=== PATIENT | female | born 2000 | race Caucasian/White ===

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

== ENCOUNTER → 2020-10-19 | Outpatient (CLI) | payer BC ==
[2020-10-19 10:38] VITALS: BP 107/74; PULSE 115; RESP 16; TEMP 98
--- NOTE | 2020-10-19 11:30 | P.HPOB ---
History of Present Illness H&P Date: 10/19/20 Chief Complaint: The patient is here for her routine gynecologic exam and for control. This is a 20-year-old G0 with an LMP of 10/13/2020. The patient states she is doing well with oral contraception and her hypermenorrhea and dysmenorrhea are controlled with the oral contraception. She says she is engaged to be and they plan to get in 2021. She is not interested in getting in the near future. She has been with her fianc for about 1-1/2 years. Review of Systems The patient has gained 11 pounds over the last year. She denies respiratory, cardiac, or G.I. problems. 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 She has completed her HPV vaccination series. History of Any Multi-Drug Resistant Organisms: None Reported Past Surgical History: No Surgical Hx Reported Past Psychological History: Anxiety Smoking Status: Never smoker Past Alcohol Use History: None Reported Past Drug Use History: None Reported Additional History: The patient is single and is now engaged to be . They plan to get in 2021. She has been with her fianc since 2018. She continues to go to [facility] [place]. - Past Family History Father Family Medical History: Unable to Obtain Additional Family Medical History / Comment(s): The patient is adopted and has very limited access to her family history. Paternal grandmother had diabetes. Mother Family Medical History: Unable to Obtain Medications and Allergies Home Medications Medication Instructions Recorded Confirmed Type Citalopram Hydrobromide 20 mg PO HS 10/21/19 10/19/20 History [Citalopram HBr] Norgestimate-Ethinyl Estradiol 1 each PO DAILY #84 tablet 10/21/19 10/19/20 Rx [Tri-Sprintec Tablet] Allergies Allergy/AdvReac Type Severity Reaction Status Date / Time bee venom protein (honey bee) Allergy Swelling Unverified 10/19/20 10:32 Exam Vital Signs Temp Pulse Resp BP Pulse Ox 10/19/20 10:34 98.0 F 115 H 16 107/74 98 Intake and Output 10/18/20 10/19/20 10/19/20 22:59 06:59 14:59 Other: Weight 76.657 kg Height 5 feet 4-1/2 inches, weight 169 pounds, BMI 28.6. This is a well-developed well-nourished white female who is alert and oriented times 3 in no acute distress. HEENT: Within normal limits. NECK: Supple without mass or thyromegaly. CHEST AND LUNGS: Clear to auscultation. HEART: Regular rate and rhythm. BREASTS: Are without mass or discharge. AXILLARY EXAM: Negative for adenopathy. BACK: Negative for CVA tenderness. ABDOMEN: Soft, nontender, without palpable masses. PELVIC EXAM: Normal external genitalia. Cervix and vagina appear normal. There is scant old menstrual type blood in the vagina. There is no unusual discharge. There is no evidence of prolapse. The uterus is midposition, nongravid size and nontender. There are no palpable adnexal masses or tenderness. RECTAL EXAM: Deferred. EXTREMITIES: Nontender. IMPRESSION: 1. 20-year-old female with normal gynecologic exam, with improved hypermenorrhea and dysmenorrhea on oral contraception. 2. She has completed her HPV vaccination series. PLAN: 1. Pap smear will be deferred until age 21. 2. Self breast awareness was discussed with the patient. 3. GC and chlamydia testing from the cervix has been obtained for screening. 4. The prescription for Tri-Sprintec will be sent to [facility] in [place] electronically. 5. She was advised to return in one year for her annual well woman exam.
--- NOTE | 2020-10-26 17:13 | P.PN ---
Progress Note - Text Progress Note Date: 10/26/20 OUTPATIENT FOLLOW-UP NOTE TEST(S)/RESULTS: Test results from 10/19/2020 include negative GC and negative chlamydia testing. METHOD OF NOTIFICATION: The patient was notified by phone. PATIENT COMMENTS: DIAGNOSIS: GC and chlamydia screening. DISCUSSION: PLAN: She was advised to return in one year for her annual well woman exam.
== END | disposition home or self-care (01) ==
LOC: WWCWWP 10:13
PROVIDERS: ATTEND Obstetrics & Gynecology
DX: Z53.9 Procedure and treatment not carried out, unspecified reason (principal)

== ENCOUNTER → 2021-10-25 | Outpatient (CLI) | payer BC ==
[2021-10-25 09:28] VITALS: BP 110/76; PULSE 100; RESP 16; TEMP 98.1
--- NOTE | 2021-10-25 10:04 | P.HPOB ---
History of Present Illness H&P Date: 10/25/21 Chief Complaint: The patient is here for her routine gynecologic exam. This is a 21-year-old G0 with an LMP of 10/12/2021. She continues to do well with oral contraception which she started because of hypermenorrhea and dysmenorrhea. Her menstrual periods have been very regular and not as heavy and not as painful. She now is also using it for contraception and plans not getting for another 3 years. She is engaged to be and has set the date on 04/08/2022. Review of Systems The patient has gained 11 pounds over the last year. She denies respiratory, cardiac, or G.I. problems. 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 She has completed her HPV vaccination series. History of Any Multi-Drug Resistant Organisms: None Reported Past Surgical History: No Surgical Hx Reported Past Psychological History: Anxiety Smoking Status: Never smoker Past Alcohol Use History: None Reported Past Drug Use History: None Reported Additional History: She is engaged to be on 04/08/2022 and they've been together since 2019. 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 - Past Family History Father Family Medical History: Unable to Obtain Additional Family Medical History / Comment(s): The patient is adopted and has very limited access to her family history. Paternal grandmother had diabetes. Mother Family Medical History: Unable to Obtain Medications and Allergies Home Medications Medication Instructions Recorded Confirmed Type Citalopram Hydrobromide 20 mg PO HS 10/21/19 10/25/21 History [Citalopram HBr] Norgestimate-Ethinyl Estradiol 1 each PO DAILY #84 tablet 10/19/20 10/25/21 Rx [Tri-Sprintec Tablet] Ascorbic Acid [Vitamin C] 500 mg PO DAILY 10/25/21 10/25/21 History Cholecalciferol [Vitamin D3 (25 25 mcg PO DAILY 10/25/21 10/25/21 History Mcg = 1000 Iu)] Zinc 50 mg PO HS 10/25/21 10/25/21 History Allergies Allergy/AdvReac Type Severity Reaction Status Date / Time bee venom protein (honey bee) Allergy Swelling Unverified 10/25/21 09:23 Exam Vital Signs Temp Pulse Resp BP Pulse Ox 10/25/21 09:25 98.1 F 100 16 110/76 98 Intake and Output 10/24/21 10/25/21 10/25/21 22:59 06:59 14:59 Other: Weight 81.647 kg Height 5 feet 4-1/2 inches, weight 180 pounds, BMI 30.4. This is a well-developed well-nourished white female who is alert and oriented times 3 in no acute distress. HEENT: Within normal limits. NECK: Supple without mass or thyromegaly. CHEST AND LUNGS: Clear to auscultation. HEART: Regular rate and rhythm. BREASTS: Are without mass or discharge. AXILLARY EXAM: Negative for adenopathy. BACK: Negative for CVA tenderness. ABDOMEN: Soft, nontender, without palpable masses. PELVIC EXAM: Normal external genitalia. Cervix and vagina appear normal. There is no unusual discharge. The cervix is slightly friable upon doing the Pap smear. There is no evidence of prolapse. The uterus is midposition, nongravid size and nontender. There are no palpable adnexal masses or tenderness. RECTAL EXAM: Deferred. EXTREMITIES: Nontender. IMPRESSION: 1. 21-year-old female with normal gynecologic exam, who is doing well on oral contraception. 2. Improved hypermenorrhea and dysmenorrhea on oral contraception. PLAN: 1. Pap smear was performed. This will be cytology only. 2. Self breast awareness was discussed with the patient. We have also discussed symptoms associated with inflammatory breast cancer. 3. GC and Chlamydia testing was obtained from the cervix. 4. Continue oral contraception. Tri-Sprintec one daily. The prescription will be sent electronically to [facility] in [place]. 5. Weight control was discussed with the patient. I have stressed the importance of good nutrition, regular meals, adequate fiber, and regular activity. 6. She has received the [employer] Covid vaccination. I have recommended that she look into a booster. 7. Preconception planning was discussed. I have recommended that she start a daily multivitamin with folic acid prior to attempting . 8. She was advised to return in one year for her annual well woman exam.
[2021-10-26 10:56] LABS: Chlamydia trachomatis rRNA Not detected (Not detected); Neisseria gonorrhoeae rRNA Not detected (Not detected)
== END ==
LOC: WWCWWP 09:00
PROVIDERS: ATTEND Obstetrics & Gynecology
DX: Z01.419 Encounter for gynecological examination (general) (routine) without abnormal findings (principal); F41.9 Anxiety disorder, unspecified; Z91.030 Bee allergy status
CPT/HCPCS: 87491; 87591

== ENCOUNTER 2022-11-15 19:20 | Emergency (ER) | payer BC ==
[2022-11-15] MEDS ORDERED: KETOROLAC 15 MG/ML 1 ML VIAL IVP STA (20:39)
[2022-11-15] MEDS ORDERED: ONDANSETRON 4 MG/2 ML VIAL IVP STA (20:39)
[2022-11-15] MEDS ORDERED: SODIUM CHLORIDE 0.9% 1,000 ML IV STA (20:39)
[2022-11-15] MEDS ORDERED: FAMOTIDINE 20 MG/2 ML VIAL IV STA (20:40)
--- NOTE | 2022-11-15 20:46 | ED ---
Abdominal Pain HPI - General Chief Complaint: Nausea/Vomiting/Diarrhea Stated Complaint: stiff neck/flu symtoms Time Seen by Provider: 11/15/22 20:23 Source: patient, family, RN notes reviewed Mode of arrival: ambulatory Limitations: no limitations - History of Present Illness Initial Comments: This is a 22-year-old female who presents to the emergency department for nausea, vomiting, diarrhea, and abdominal pain for the last 3 days. States that she is unable to keep much of anything down and has associated diarrhea. She is now starting to feel like she has a headache and stiff neck with pain going down the back. She is still trying to push fluids despite all of the vomiting. Denies any fevers or sick contacts. States that the abdominal pain is diffuse and she is unable to localize it. Also states that she has been very sleepy and has only been awake for 4 hours today. Denies any fevers, chills, sore throat, cough, dyspnea, chest pain, or palpitations. MD Complaint: abdominal pain Onset/Timin -: days(s) Location: diffuse Associated Symptoms: nausea, vomiting, diarrhea - Related Data Home Medications Medication Instructions Recorded Confirmed Citalopram Hydrobromide 20 mg PO HS 10/21/19 10/25/21 [Citalopram HBr] Ascorbic Acid [Vitamin C] 500 mg PO DAILY 10/25/21 10/25/21 Cholecalciferol [Vitamin D3 (25 25 mcg PO DAILY 10/25/21 10/25/21 Mcg = 1000 Iu)] Zinc 50 mg PO HS 10/25/21 10/25/21 Previous Rx's Medication Instructions Recorded norgestimate-ethinyl estradioL 1 each PO DAILY #84 tablet 10/25/21 [Tri-Sprintec Tablet] Ketorolac [Toradol] 10 mg PO Q6HR PRN #12 tab 11/15/22 Ondansetron Odt [Zofran Odt] 4 mg PO Q8HR PRN #15 tab 11/15/22 Allergies Allergy/AdvReac Type Severity Reaction Status Date / Time bee venom protein (honey bee) Allergy Swelling Verified 11/15/22 21:36 Review of Systems ROS Statement: Those systems with pertinent positive or pertinent negative responses have been documented in the HPI. ROS Other: All systems not noted in ROS Statement are negative. 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 She has completed her HPV vaccination series. History of Any Multi-Drug Resistant Organisms: None Reported Past Surgical History: No Surgical Hx Reported Past Psychological History: Anxiety Smoking Status: Never smoker Past Alcohol Use History: None Reported Past Drug Use History: None Reported - Past Family History Father Family Medical History: Unable to Obtain Additional Family Medical History / Comment(s): The patient is adopted and has wes limited access to her family history. Paternal grandmother had diabetes. Mother Family Medical History: Unable to Obtain General Exam Limitations: no limitations General appearance: alert, in distress Head exam: Present: atraumatic, normocephalic, normal inspection Neck exam: Present: normal inspection, full ROM. Absent: tenderness, meningismus, lymphadenopathy Respiratory exam: Present: normal lung sounds bilaterally. Absent: respiratory distress, wheezes, rales, rhonchi, stridor Cardiovascular Exam: Present: regular rate, normal rhythm, normal heart sounds. Absent: systolic murmur, diastolic murmur, rubs, gallop, clicks GI/Abdominal exam: Present: soft, tenderness (diffuse, worse on the right), hypoactive bowel sounds. Absent: distended Neurological exam: Present: alert, oriented X3, CN II-XII intact Psychiatric exam: Present: normal affect, normal mood Skin exam: Present: warm, dry, intact, normal color. Absent: rash Course Vital Signs 11/15/22 11/15/22 19:32 23:06 Temperature 97.5 F L 98.2 F Pulse Rate 96 82 Respiratory 18 16 Rate Blood Pressure 111/76 115/78 O2 Sat by Pulse 98 98 Oximetry Medical Decision Making - Medical Decision Making This is a 22-year-old female who presents to the emergency department for nausea, vomiting, diarrhea, and abdominal pain. Was pt. sent in by a medical professional or institution? @ -No Did you speak to anyone other than the patient for history? @ -Her mother Did you review nursing and triage notes? @ -Yes, and I agree, it is accurate with regards to the patient's symptoms. Were old charts reviewed? @ -No Differential Diagnosis? @ -Differential Abdominal Pain Women: Appendicitis, Cholecystitis, diverticulosis, ischemic bowel, pancreatitis, hepatitis, UTI, gastroenteritis, AAA, incarcerated hernia, bowel obstruction, constipation, inflammatory bowel, hepatitis, peptic ulcer disease, splenic infarction, perforated viscus, vulvitis, ovarian torsion, PID, kidney stone, placenta abruption, this is not meant to be an all-inclusive list CT interpreted by me (1pt min.)? @ -Computed tomography scan of the abdomen and pelvis obtained. My interpretation identifies no evidence of bowel wall thickening or dilation of the appendix. What testing was considered but not performed? (CT, X-rays, U/S, labs)? Why? @ -None What meds were considered but not given? Why? @ -None Did you discuss the management of the patient with other professionals? @ -No Did you reconcile home meds? @ -No Was smoking cessation discussed for >3mins.? @ -No Was critical care preformed (if so, how long)? @ -No Were there social determinants of health that impacted care today? How? (Homelessness, low income, unemployed, alcoholism, drug addiction, t ransportation, low edu. Level, literacy, decrease access to med. care, custodial, rehab)? @ -No Was there de-escalation of care discussed even if they declined? (Discuss DNR or withdrawal of care, Hospice)? @ -No What co-morbidities impacted this encounter? (DM, HTN, Smoking, COPD, CAD, Cancer, CVA, Hep., AIDS, mental health diagnosis, sleep apnea, morbid obesity)? @ -None Was patient admitted / discharged? @ -Discharged. Lab work obtained and found to be nonactionable. Computed tomography scan of the abdomen and pelvis obtained due to the patient's notable tenderness. This also revealed no acute findings. She was given IV fluids, Toradol, Zofran, and Pepcid with significant relief in symptoms. Patient states that she feels stable for discharge home. Prescription for Zofran and Toradol provided with dosing instructions reviewed. Advised she avoid [id number] anti-inflammatories such as ibuprofen with the Toradol. Instructed her to slowly advance her diet as tolerated and remain well-hydrated. Also advised warm moist compresses for the neck. Undiagnosed new problem with uncertain prognosis? @ -None Drug Therapy requiring intensive monitoring for toxicity (Heparin, Nitro, Insulin, Cardizem)? @ -None Were any procedures done? @ -None Diagnosis/symptom? @ -Gastroenteritis Acute, or Chronic, or Acute on Chronic? @ -Acute Uncomplicated (without systemic symptoms) or Complicated (systemic symptoms)? @ -Complicated Side effects of treatment? @ -None Exacerbation, Progression, or Severe Exacerbation] @ -Not applicable Poses a threat to life or bodily function? @ -Yes, the symptoms have been impacting her ability to function. Return precautions reviewed in depth, the patient is instructed to return to the emergency department with any new, worsening, or concerning symptoms. Patient verbalized understanding. This case was discussed in detail with the attending ED physician, Dr. Odonnell. Presentation, findings, and treatment plan discussed in detail as well. - Lab Data Result diagrams: 11/15/22 21:14 11/15/22 21:14 Lab Results 11/15/22 11/15/22 11/15/22 Range/Units 21:14 21:14 21:14 WBC 5.7 (3.8-10.6) k/uL RBC 5.54 H (3.80-5.40) m/uL Hgb 14.1 (11.4-16.0) gm/dL Hct 42.2 (34.0-46.0) % MCV 76.1 L (80.0-100.0) fL MCH 25.4 (25.0-35.0) pg MCHC 33.4 (31.0-37.0) g/dL RDW 12.9 (11.5-15.5) % Plt Count 343 (150-450) k/uL MPV 7.2 Neutrophils % 58 % Lymphocytes % 28 % Monocytes % 8 % Eosinophils % 2 % Basophils % 1 % Neutrophils # 3.3 (1.3-7.7) k/uL Lymphocytes # 1.6 (1.0-4.8) k/uL Monocytes # 0.5 (0-1.0) k/uL Eosinophils # 0.1 (0-0.7) k/uL Basophils # 0.0 (0-0.2) k/uL Sodium (137-145) mmol/L Potassium (3.5-5.1) mmol/L Chloride (98-107) mmol/L Carbon Dioxide (22-30) mmol/L Anion Gap mmol/L BUN (7-17) mg/dL Creatinine (0.52-1.04) mg/dL Est GFR (CKD-EPI)AfAm (>60 ml/min/1.73 sqM) Est GFR (CKD-EPI)NonAf (>60 ml/min/1.73 sqM) Glucose (74-99) mg/dL Plasma Lactic Acid Dave (0.7-2.0) mmol/L Calcium (8.4-10.2) mg/dL Total Bilirubin (0.2-1.3) mg/dL AST (14-36) U/L ALT (4-34) U/L Alkaline Phosphatase (38-126) U/L Total Protein (6.3-8.2) g/dL Albumin (3.5-5.0) g/dL Amylase (30-110) U/L Lipase (23-300) U/L HCG, Qual Urine Color Yellow Urine Appearance Clear (Clear) Urine pH 6.5 (5.0-8.0) Ur Specific Monroe 1.007 (1.001-1.035) Urine Protein Negative (Negative) Urine Glucose (UA) Negative (Negative) Urine Ketones Negative (Negative) Urine Blood Moderate H (Negative) Urine Nitrite Negative (Negative) Urine Bilirubin Negative (Negative) Urine Urobilinogen <2.0 (<2.0) mg/dL Ur Leukocyte Esterase Negative (Negative) Urine RBC 2 (0-5) /hpf Urine WBC 2 (0-5) /hpf Ur Squamous Epith Cells 1 (0-4) /hpf Urine Bacteria Occasional H (None) /hpf Urine HCG, Qual Not Detected (Not Detectd) Urine Opiates Screen (NotDetected) Ur Oxycodone Screen (NotDetected) Urine Methadone Screen (NotDetected) Ur Propoxyphene Screen (NotDetected) Ur Barbiturates Screen (NotDetected) U Tricyclic Antidepress (NotDetected) Ur Phencyclidine Scrn (NotDetected) Ur Amphetamines Screen (NotDetected) U Methamphetamines Scrn (NotDetected) U Benzodiazepines Scrn (NotDetected) Urine Cocaine Screen (NotDetected) U Marijuana (THC) Screen (NotDetected) Influenza Type A (PCR) (Not Detectd) Influenza Type B (PCR) (Not Detectd) RSV (PCR) (Not Detectd) SARS-CoV-2 (PCR) (Not Detectd) 11/15/22 11/15/2211/15/23 Range/Units 21:14 21:14 21:14 WBC (3.8-10.6) k/uL RBC (3.80-5.40) m/uL Hgb (11.4-16.0) gm/dL Hct (34.0-46.0) % MCV (80.0-100.0) fL MCH (25.0-35.0) pg MCHC (31.0-37.0) g/dL RDW (11.5-15.5) % Plt Count (150-450) k/uL MPV Neutrophils % % Lymphocytes % % Monocytes % % Eosinophils % % Basophils % % Neutrophils # (1.3-7.7) k/uL Lymphocytes # (1.0-4.8) k/uL Monocytes # (0-1.0) k/uL Eosinophils # (0-0.7) k/uL Basophils # (0-0.2) k/uL Sodium 136 L (137-145) mmol/L Potassium 4.0 (3.5-5.1) mmol/L Chloride 98 (98-107) mmol/L Carbon Dioxide 24 (22-30) mmol/L Anion Gap 14 mmol/L BUN 7 (7-17) mg/dL Creatinine 0.67 (0.52-1.04) mg/dL Est GFR (CKD-EPI)AfAm >90 (>60 ml/min/1.73 sqM) Est GFR (CKD-EPI)NonAf >90 (>60 ml/min/1.73 sqM) Glucose 98 (74-99) mg/dL Plasma Lactic Acid Dave 1.5 (0.7-2.0) mmol/L Calcium 9.2 (8.4-10.2) mg/dL Total Bilirubin 0.5 (0.2-1.3) mg/dL AST 35 (14-36) U/L ALT 18 (4-34) U/L Alkaline Phosphatase 84 (38-126) U/L Total Protein 8.0 (6.3-8.2) g/dL Albumin 4.6 (3.5-5.0) g/dL Amylase 70 (30-110) U/L Lipase 149 (23-300) U/L HCG, Qual Not Detected Urine Color Urine Appearance (Clear) Urine pH (5.0-8.0) Ur Specific Monroe (1.001-1.035) Urine Protein (Negative) Urine Glucose (UA) (Negative) Urine Ketones (Negative) Urine Blood (Negative) Urine Nitrite (Negative) Urine Bilirubin (Negative) Urine Urobilinogen (<2.0) mg/dL Ur Leukocyte Esterase (Negative) Urine RBC (0-5) /hpf Urine WBC (0-5) /hpf Ur Squamous Epith Cells (0-4) /hpf Urine Bacteria (None) /hpf Urine HCG, Qual (Not Detectd) Urine Opiates Screen Not Detected (NotDetected) Ur Oxycodone Screen Not Detected (NotDetected) Urine Methadone Screen Not Detected (NotDetected) Ur Propoxyphene Screen Not Detected (NotDetected) Ur Barbiturates Screen Not Detected (NotDetected) U Tricyclic Antidepress Not Detected (NotDetected) Ur Phencyclidine Scrn Not Detected (NotDetected) Ur Amphetamines Screen Not Detected (NotDetected) U Methamphetamines Scrn Not Detected (NotDetected) U Benzodiazepines Scrn Not Detected (NotDetected) Urine Cocaine Screen Not Detected (NotDetected) U Marijuana (THC) Screen Not Detected (NotDetected) Influenza Type A (PCR) (Not Detectd) Influenza Type B (PCR) (Not Detectd) RSV (PCR) (Not Detectd) SARS-CoV-2 (PCR) (Not Detectd) 11/15/22 Range/Units 21:14 WBC (3.8-10.6) k/uL RBC (3.80-5.40) m/uL Hgb (11.4-16.0) gm/dL Hct (34.0-46.0) % MCV (80.0-100.0) fL MCH (25.0-35.0) pg MCHC (31.0-37.0) g/dL RDW (11.5-15.5) % Plt Count (150-450) k/uL MPV Neutrophils % % Lymphocytes % % Monocytes % % Eosinophils % % Basophils % % Neutrophils # (1.3-7.7) k/uL Lymphocytes # (1.0-4.8) k/uL Monocytes # (0-1.0) k/uL Eosinophils # (0-0.7) k/uL Basophils # (0-0.2) k/uL Sodium (137-145) mmol/L Potassium (3.5-5.1) mmol/L Chloride (98-107) mmol/L Carbon Dioxide (22-30) mmol/L Anion Gap mmol/L BUN (7-17) mg/dL Creatinine (0.52-1.04) mg/dL Est GFR (CKD-EPI)AfAm (>60 ml/min/1.73 sqM) Est GFR (CKD-EPI)NonAf (>60 ml/min/1.73 sqM) Glucose (74-99) mg/dL Plasma Lactic Acid Dave (0.7-2.0) mmol/L Calcium (8.4-10.2) mg/dL Total Bilirubin (0.2-1.3) mg/dL AST (14-36) U/L ALT (4-34) U/L Alkaline Phosphatase (38-126) U/L Total Protein (6.3-8.2) g/dL Albumin (3.5-5.0) g/dL Amylase (30-110) U/L Lipase (23-300) U/L HCG, Qual Urine Color Urine Appearance (Clear) Urine pH (5.0-8.0) Ur Specific Monroe (1.001-1.035) Urine Protein (Negative) Urine Glucose (UA) (Negative) Urine Ketones (Negative) Urine Blood (Negative) Urine Nitrite (Negative) Urine Bilirubin (Negative) Urine Urobilinogen (<2.0) mg/dL Ur Leukocyte Esterase (Negative) Urine RBC (0-5) /hpf Urine WBC (0-5) /hpf Ur Squamous Epith Cells (0-4) /hpf Urine Bacteria (None) /hpf Urine HCG, Qual (Not Detectd) Urine Opiates Screen (NotDetected) Ur Oxycodone Screen (NotDetected) Urine Methadone Screen (NotDetected) Ur Propoxyphene Screen (NotDetected) Ur Barbiturates Screen (NotDetected) U Tricyclic Antidepress (NotDetected) Ur Phencyclidine Scrn (NotDetected) Ur Amphetamines Screen (NotDetected) U Methamphetamines Scrn (NotDetected) U Benzodiazepines Scrn (NotDetected) Urine Cocaine Screen (NotDetected) U Marijuana (THC) Screen (NotDetected) Influenza Type A (PCR) Not Detected (Not Detectd) Influenza Type B (PCR) Not Detected (Not Detectd) RSV (PCR) Not Detected (Not Detectd) SARS-CoV-2 (PCR) Not Detected (Not Detectd) - Radiology Data Radiology results: report reviewed, image reviewed Disposition Clinical Impression: Gastroenteritis Disposition: HOME SELF-CARE Instructions (If sedation given, give patient instructions): Gastroenteritis (ED), Acute Nausea and Vomiting (ED), Acute Diarrhea (ED) Additional Instructions: Return to the emergency department with any new, worsening, or concerning symptoms. You can take the Toradol with the Tylenol as needed for any additional pain. If you choose to take the Toradol, do not take it with ibuprofen or any other anti-inflammatories. Apply warm moist heat to the neck to help with pain and stiffness. You can take the Zofran up to every 8 hours as needed for nausea and vomiting. Slowly advance your diet as tolerated. Follow up with your primary care provider in 1-2 days. Prescriptions: Ketorolac [Toradol] 10 mg PO Q6HR PRN #12 tab PRN Reason: Pain Ondansetron Odt [Zofran Odt] 4 mg PO Q8HR PRN #15 tab PRN Reason: Nausea And Vomiting Is patient prescribed a controlled substance at d/c from ED?: No Referrals: Arnol Rush MD [Primary Care Provider] - 1-2 days
[2022-11-15 21:33] LABS: Basophils % (A) 1 %; Eosinophils # (A) 0.1 k/uL (0-0.7); Eosinophils % (A) 2 %; HCT 42.2 % (34.0-46.0); HGB 14.1 gm/dL (11.4-16.0); Lymphocytes # (A) 1.6 k/uL (1.0-4.8); Lymphocytes % (A) 28 %; MCH 25.4 pg (25.0-35.0); MCHC 33.4 g/dL (31.0-37.0); MCV 76.1 fL (80.0-100.0); Mean Platelet Volume 7.2; Monocytes # (A) 0.5 k/uL (0-1.0); Monocytes % (A) 8 %; Neutrophils # (A) 3.3 k/uL (1.3-7.7); Neutrophils % (A) 58 %; Platelet Count 343 k/uL (150-450); RBC 5.54 m/uL (3.80-5.40); RDW 12.9 % (11.5-15.5); WBC 5.7 k/uL (3.8-10.6)
[2022-11-15 21:46] LABS: ALT 18 U/L (4-34); AST 35 U/L (14-36); African American GFR (CKD) >90 (>60 ml/min/1.73 sqM); Albumin 4.6 g/dL (3.5-5.0); Alkaline Phosphatase 84 U/L (38-126); Amylase 70 U/L (30-110); Anion Gap 14 mmol/L; Blood Urea Nitrogen 7 mg/dL (7-17); Calcium 9.2 mg/dL (8.4-10.2); Carbon Dioxide 24 mmol/L (22-30); Chloride 98 mmol/L (98-107); Glucose 98 mg/dL (74-99); Lipase 149 U/L (23-300); Non-African American GFR(CKD) >90 (>60 ml/min/1.73 sqM); Sodium 136 mmol/L (137-145); Total Bilirubin 0.5 mg/dL (0.2-1.3)
[2022-11-15 21:54] LABS: Appearance,Urine Clear (Clear); Bacteria,Urine Occasional /hpf; Bilirubin,Urine Negative (Negative); Blood,Urine Moderate (Negative); Color,Urine Yellow; Glucose,Urine (UA) Negative (Negative); Ketones,Urine Negative (Negative); Leukocyte Esterase,Urine Negative (Negative); Nitrite,Urine Negative (Negative); PH, Urine 6.5 (5.0-8.0); Protein,Urine Negative (Negative); RBC,Urine 2 /hpf (0-5); Specific Gravity,Urine 1.007 (1.001-1.035); Squamous Epithelial Cell,Urine 1 /hpf (0-4); Urobilinogen,Urine <2.0 mg/dL (<2.0); WBC,Urine 2 /hpf (0-5)
[2022-11-15 21:59] LABS: HCG,Qualitative Serum Not Detected
[2022-11-15 22:08] LABS: Amphetamine Screen,Urine Not Detected (NotDetected); Barbiturate Screen,Urine Not Detected (NotDetected); Benzodiazepines Screen,Urine Not Detected (NotDetected); Cocaine Screen,Urine Not Detected (NotDetected); Methadone Screen, Urine Not Detected (NotDetected); Opiate Screen,Urine Not Detected (NotDetected); Oxycodone Screen, Urine Not Detected (NotDetected); Phencyclidine Screen,Urine Not Detected (NotDetected); Tricyclic Antidepressant,Urine Not Detected (NotDetected); Urn Cannabinoid Scrn Not Detected (NotDetected)
--- NOTE | 2022-11-15 22:38 | CT ---
EXAMINATION TYPE: CT abdomen pelvis w con DATE OF EXAM: 11/15/2022 COMPARISON: None HISTORY: Abd pain. Vomitting, diarrhea. Neck pain radiating down her back. CT DLP: 1210.4 mGycm Automated exposure control for dose reduction was used. CONTRAST: Performed with IV Contrast, patient injected with 100cc mL of Isovue 300. Images obtained from the diaphragm to the floor the pelvis with the IV contrast. The lung bases are clear. No pleural effusion. Heart size is normal. No pericardial effusion. There is diffuse fatty infiltration of the liver. Spleen is intact. Stomach is intact. There is no pa ncreatic mass. The gallbladder is intact. The bile ducts are not dilated. There is no adrenal mass. Kidneys show satisfactory contrast opacification. No hydronephrosis. Append ix is posterior and appears normal. Urinary bladder is empty. No pelvic mass. No free fluid in the pe lvis. No inguinal hernia. The lumbar vertebrae have normal alignment. Posterior elements are intact. No compression fracture. T he bony pelvis is intact. The hip joints are intact. There is no mesenteric edema. No ascites or free air. No sign of bowel obstruction. IMPRESSION: There is fatty infiltration of the liver. Normal appendix. No acute abnormality in the abdomen and pe lvis.
[2022-11-15] MEDS ORDERED: ONDANSETRON 4 MG ODT STARTER PACK 2 TAB BTL PO STA (22:50)
[2022-11-15 23:07] VITALS: BP 115/78; PULSE 82; RESP 16; TEMP 98.2
== END 2022-11-15 23:06 | disposition home or self-care (01) ==
LOC: EC 19:20
DX: K52.9 Noninfective gastroenteritis and colitis, unspecified (principal); F41.9 Anxiety disorder, unspecified; Z91.030 Bee allergy status; Z20.822 Contact with and (suspected) exposure to COVID-19
CPT/HCPCS: 36415; 80053; 82150; 83605; 83690; 85025; 81001; 81025; 84703; 80306; 87636; 74177; 99284; 96374; 96375 ×2; 96361; J2405; J1885; S0119; Q9967

== ENCOUNTER 2025-04-07 13:15 | Inpatient (IN) | payer BC ==
[2025-04-07] MEDS: DINOPROSTONE 10 MG INSERT.ER VAGINAL ONE (16:51)
--- NOTE | 2025-04-07 17:01 | P.HPOB ---
History of Present Illness H&P Date: 04/07/25 Chief Complaint: IUP at 38-4/7 weeks, umbilical cord varix 24-year-old 1 para 0 at 30-4/7 weeks at presents to labor and delivery for induction of labor secondary to umbilical cord varix. Estimated due date of 04/17 based on good dating parameters. Patient has been receiving routine care. Umbilical cord varix was diagnosed on ultrasound at her previous visit, risk for stillbirth were discussed and patient desired induction of labor. Patient has had extreme anxiety since this conversation and has been noting some decreased movement. Patient denies contractions. Patient denies loss of fluid or vaginal bleeding. On blood work this patient is a blood type O-, rubella status nonimmune, hepatitis B surface engine negative, HIV negative, RPR nonreactive, grew beta strep culture negative. 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 She has completed her HPV vaccination series. History of Any Multi-Drug Resistant Organisms: None Reported Past Surgical History: No Surgical Hx Reported Past Anesthesia/Blood Transfusion Reactions: No Reported Reaction Past Psychological History: Anxiety Smoking Status: Never smoker Past Alcohol Use History: None Reported Past Drug Use History: None Reported - Past Family History Father Family Medical History: Unable to Obtain Additional Family Medical History / Comment(s): The patient is adopted and has very limited access to her family history. Paternal grandmother had diabetes. Mother Family Medical History: Unable to Obtain Medications and Allergies Home Medications Medication Instructions Recorded Confirmed Type Vit No.179/Iron/Folic 1 tab PO DAILY 04/07/25 04/07/25 History [ Tablet] Allergies Allergy/AdvReac Type Severity Reaction Status Date / Time bee venom protein (honey bee) Allergy Swelling Verified 04/07/25 16:21 Exam Osteopathic Statement: *. No significant issues noted on an osteopathic structural exam other than those noted in the History and Physical/Consult. Vital Signs Temp Resp BP Pulse Ox 04/07/25 16:21 96.8 F L 16 119/72 99 Intake and Output 04/07/25 04/07/25 04/07/25 06:59 14:59 22:59 Other: Weight 97.976 kg Targeted physical exam is performed this date in general is well-nourished well- developed female in no acute distress, breathing is nonlabored, abdomen is noted to be gravid, on cervical exam she is 1/50/-3 station vertex presentation, Cervidil is placed without difficulty. heart tones are noted to be category 1 and she is not tawana. Assessment and Plan (1) Term Narrative/Plan: Suspected LGA, 89th percentile on last ultrasound Current Visit: Yes Status: Acute Code(s): Z34.90 - ENCNTR FOR SUPRVSN OF NORMAL , UNSP, UNSP TRIMESTER SNOMED Code(s): 69357915 (2) Varices of umbilical cord Current Visit: Yes Status: Acute Code(s): MDX7528 - SNOMED Code(s): 366052110 Plan: 24-year-old at 38-4/7 weeks presents for medical induction of labor secondary to umbilical cord varix, suspected LGA. Patient has had extreme anxiety since diagnosis of umbilical cord varix and has been struggling with some decreased movement. Patient is admitted and Cervidil is placed out difficulty. Options for analgesia are discussed including Nubain, nitrous, epidural. Patient does desire epidural when appropriate.
[2025-04-07 17:31] LABS: Basophils # (A) 0.03 10*3/uL (0.00-0.10); Basophils % (A) 0.3 %; Eosinophils # (A) 0.06 10*3/uL (0.04-0.35); Eosinophils % (A) 0.5 %; HCT 36.4 % (37.2-46.3); HGB 11.7 g/dL (12.0-15.0); Lymphocytes % (A) 20.3 %; MCH 25.8 pg (27.0-32.0); MCHC 32.1 g/dL (32.0-37.0); MCV 80.4 fL (80.0-97.0); Mean Platelet Volume 10.8 fL (9.5-12.2); Monocytes # (A) 0.89 10*3/uL (0.20-1.00); Monocytes % (A) 7.9 %; Neutrophils # (A) 7.96 10*3/uL (1.80-7.70); Neutrophils % (A) 70.3 %; Platelet Count 279 10*3/uL (140-440); RBC 4.53 10*6/uL (4.10-5.20); RDW 14.6 % (11.5-14.5); WBC 11.32 10*3/uL (4.50-10.00)
[2025-04-08] MEDS: NALBUPHINE 10 MG/ML (10 ML MDV) IV PRN (03:33)
[2025-04-08] MEDS ORDERED: CARBOPROST TROMETHAMINE 250 MCG/ML 1 ML AMP IM PRN (05:24)
[2025-04-08] MEDS ORDERED: TERBUTALINE 1 MG/ML VIAL SQ PRN (05:24)
[2025-04-08] MEDS ORDERED: METHYLERGONOVINE 0.2 MG/ML 1 ML AMP IM PRN ×2 (05:24→19:05)
[2025-04-08] MEDS ORDERED: TRANEXAMIC 1,000 MG/100ML-NACL 1,000 MG in EMPTY BAG 1 BAG IV PRN (05:24)
[2025-04-08] MEDS ORDERED: miSOPROStoL 200 MCG TAB RECTAL PRN (05:24)
[2025-04-08] MEDS ORDERED: miSOPROStoL 200 MCG TAB PO PRN (05:24)
[2025-04-08] MEDS ORDERED: LIDOCAINE 0.5% (PF) 5 MG/ML (50 ML SDV) SQ PRN (05:24)
[2025-04-08] MEDS ORDERED: OXYTOCIN 10 UNIT/ML 1 ML VIAL IM PRN (05:24)
[2025-04-08] MEDS: LACTATED RINGERS 1,000 ML IV SCH ×2 (05:53→22:42)
[2025-04-08] MEDS: OXYTOCIN 30 UNITS/500 ML NS 30 UNIT in SALINE 1 500ML.BAG IV SCH (06:55)
[2025-04-08] MEDS ORDERED: fentaNYL (PF) 50 MCG/ML 5 ML AMP ONE (11:05)
[2025-04-08] MEDS ORDERED: SODIUM CHLORIDE 0.9% 250 ML BAG ONE (11:05)
[2025-04-08] MEDS ORDERED: ROPIVACAINE 5 MG/ML 30 ML VIAL ONE (11:05)
[2025-04-08] MEDS: CITRIC ACID-SODIUM CITRATE 15 ML CUP PO ONE (19:18)
[2025-04-08] MEDS ORDERED: ONDANSETRON 4 MG/2 ML VIAL ONE (19:29)
[2025-04-08] MEDS ORDERED: OXYTOCIN 30 UNITS/500 ML NS BAG IV ONE (19:29)
[2025-04-08] MEDS ORDERED: NALBUPHINE (ANES) 10 MG/ML - 1 ML AMP ONE (19:29)
[2025-04-08] MEDS ORDERED: MORPHINE SULFATE (PF) 0.3 MG/0.3 ML SYR ONE (19:29)
--- NOTE | 2025-04-08 20:07 | P.OP ---
Date of Procedure: 04/08/25 Preoperative Diagnosis: P at 38 and 5, umbilical cord varix, suspected LGA Postoperative Diagnosis: same Procedure(s) Performed: Primary low-transverse section Anesthesia: epidural Configuration Developer #1: Niki Pichardo Configuration Developer #2: Griselda Chávez Estimated Blood Loss (ml): 1,052 IV fluids (ml): 600 Urine output (ml): 300 (Clear yellow) Pathology: none sent Condition: stable Disposition: observation Indications for Procedure: Arrest of dilation, vent, no cervical change for multiple hours, greater than 6, lack of cervical dilation was discussed with patient and patient's family. After multiple questions were answered patient centered agreement of proceeding with primary low-transverse section. Operative Findings: Viable male delivered at 1940, weight of 8 pounds 15 ounces, Apgars of 9 and 9 at 1 and 5 minutes respectively. Description of Procedure: The patient was prepped and draped in the usual fashion after epidural an esthesia was found to be adequate by the anesthesia department.. A Pfannenstiel incision was made and extended of the abdominal cavity without difficulty. The bladder peritoneum was elevated and incised and reflected distally. A 2 cm incision was made in the transverse plane of the lower uterine segment to enter the uterus at which time clear fluid was noted. The incision was extended in both directions using the bandage scissors. The head was encountered within the field and delivered up and through the incision where the nose and mouth were thoroughly suctioned. Remainder of the was delivered onto the surgical field where the cord was doubly clamped, cut, and the infant was passed for resuscitative measures with weight and Apgars as noted above. The placenta was delivered manually, intact, and was grossly normal with a grossly normal three-vessel cord. The uterus was exteriorized and the interior cavity of the uterus swept of any remaining placental and membranous fragments with a laparotomy sponge. The margins of the incision were grasped with Layne clamps and the incision closed in 2 layers. First layer was a running locking layer of 0 chromic catgut from margin to margin followed by a second layer of imbricating 0 chromic catgut from margin to margin. Any small points of bleeding were then made hemostatic with the Bovie. Once hemostasis was a chieved, the posterior cul-de-sac was suctioned with a guard and the uterine and ovarian findings are as noted above. The uterus was replaced within the abdominal cavity and the gutters swept of any remaining blood fluid or clot. The incision was again reexamined and hemostasis was noted to be excellent. Any small point of bleeding were made hemostatic with the Bovie. Once hemostasis was achieved the parietal peritoneum was loosely reapproximated. The layer of muscles were examined and made hemostatic with the Bovie. Attention was then turned to the fascia which was closed with 2 running stitches of 0 Vicryl from 1 lateral edge to the other. The subcutaneous tissues were irrigated, made hemostatic with the Bovie, and reapproximated with a running stitch of 30 Vicryl. The skin was reapproximated with 4-0 Vicryl. Estimated blood loss for the case was approximately 1052 mL. All sponge instrument and needle counts are correct. There were no complications. The patient tolerated the procedure well and proceeded to the recovery room in stable condition. Both mother and infant are resting comfortably in recovery.
[2025-04-08] MEDS ORDERED: ZOLPIDEM 5 MG TAB PO PRN (20:15)
[2025-04-08] MEDS ORDERED: METOCLOPRAMIDE 5 MG/ML 2 ML VIAL IVP PRN (20:15)
[2025-04-08] MEDS ORDERED: diphenhydrAMINE 25 MG CAP PO PRN (20:15)
[2025-04-08] MEDS ORDERED: NALOXONE 0.4 MG/ML 1 ML VIAL IV PRN (20:15)
[2025-04-08] MEDS ORDERED: SIMETHICONE 80 MG CHEWABLE PO PRN (20:15)
[2025-04-08] MEDS ORDERED: diphenhydrAMINE 50 MG/ML 1 ML VIAL IVP PRN ×2 (20:15)
[2025-04-08] MEDS ORDERED: ONDANSETRON 4 MG/2 ML VIAL IVP PRN (20:15)
[2025-04-08] MEDS ORDERED: diphenhydrAMINE 50 MG CAP PO PRN (20:15)
[2025-04-08] MEDS: ACETAMINOPHEN IV (For NPO) 1,000 MG in EMPTY BAG 1 BAG IVPB ONE (20:48)
[2025-04-08] MEDS: SENNOSIDES-DOCUSATE SODIUM 1 EACH TAB PO SCH (21:18)
[2025-04-08] MEDS: MORPHINE SULFATE 2 MG/ML SYRINGE IVP PRN (22:41)
[2025-04-09] MEDS: IBUPROFEN 800 MG TAB PO SCH (03:28)
[2025-04-09] MEDS: IBUPROFEN IV 800 MG in SODIUM CHLORIDE 0.9% 250 ML IV ONE (03:48)
[2025-04-09] MEDS: Rhogam IMMUNE GLOBULIN 1,500 UNIT/1 ML IM ONE (04:57)
[2025-04-09] MEDS: ACETAMINOPHEN TAB 500 MG TAB PO SCH (05:09)
[2025-04-09 07:18] LABS: Basophils # (A) 0.03 10*3/uL (0.00-0.10); Basophils % (A) 0.2 %; Eosinophils # (A) 0.03 10*3/uL (0.04-0.35); Eosinophils % (A) 0.2 %; HCT 29.6 % (37.2-46.3); Lymphocytes # (A) 1.78 10*3/uL (0.90-5.00); Lymphocytes % (A) 12.5 %; MCH 26.1 pg (27.0-32.0); MCHC 32.4 g/dL (32.0-37.0); MCV 80.4 fL (80.0-97.0); Mean Platelet Volume 10.3 fL (9.5-12.2); Monocytes % (A) 9.8 %; Neutrophils # (A) 10.89 10*3/uL (1.80-7.70); Neutrophils % (A) 76.7 %; Platelet Count 210 10*3/uL (140-440); RBC 3.68 10*6/uL (4.10-5.20); RDW 14.8 % (11.5-14.5); WBC 14.22 10*3/uL (4.50-10.00)
[2025-04-09 07:19] LABS: HGB 9.6 g/dL (12.0-15.0)
--- NOTE | 2025-04-09 07:53 | P.PN ---
Progress Note - Text Progress Note Date: 04/09/25 (576) Anesthesia Postop day 1 Subjective: Status Post section with Duramorph. Patient seen and examined. Doing well without complaint. VAS 8 out of 10. No nausea or pruritus. Denies fever. Gross lower extremity strength intact. Without apparent anesthetic complications. Objective: Vital signs reviewed Heart: Regular Rate Lungs: Good chest excursion Abdomen: Appears nondistended Assessment: Status post section with Duramorph postop day 1 Plan: 1. Continue current care with your medical management. Anticipated end to the duration of the Duramorph around surgery time today. You may see increased pain needs around this time. Breakthrough meds available 2. This note was dictated using [employer] software. Please be advised there is a potential for misspellings or errors in aviation technician aircraft.
--- NOTE | 2025-04-09 09:23 | P.PNOBGPC ---
Subjective - Subjective Principal diagnosis: Postop day 1, primary section Interval history: Doing well this morning. She is ambulating without difficulty. Hope discontinued at 6 AM awaiting spontaneous void. Lochia is minimal to moderate. She is breast-feeding without difficulty. She states her pain is moderately well-controlled. Patient reports: Reports appetite normal, Reports voiding normally, Reports pain well controlled, Reports ambulating normally Lynn: doing well, nursing well Objective - Vital Signs Latest vital signs: Vital Signs Temp Pulse Resp BP Pulse Ox 04/09/25 08:00 98.1 F 92 16 105/70 04/09/25 04:00 97.9 F 95 16 110/74 98 04/09/25 00:00 98.0 F 84 16 105/64 96 04/08/25 22:10 88 16 113/59 97 04/08/25 21:55 79 16 111/57 97 04/08/25 21:40 75 16 112/56 98 04/08/25 21:25 86 16 119/58 98 04/08/25 20:55 81 16 108/58 96 04/08/25 20:40 93 15 115/56 99 04/08/25 20:25 90 16 118/59 99 04/08/25 20:10 97.8 F 95 16 104/57 97 Intake and Output 04/08/25 04/09/25 04/09/25 22:59 06:59 14:59 Intake Total 200 Output Total 843 1300 Balance -843 -1100 Intake: Oral 200 Output: Urine 700 1300 Uretheral (Hope) 700 1300 Output, Quantitative 143 Blood Loss Other: Voiding Method Indwelling Catheter - Exam Extremities: Present: normal, edema Abdomen: Present: normal appearance, soft Incision: Present: normal, dry, intact Uterus: Present: normal, firm - Labs Labs: Abnormal Lab Results - Last 24 Hours (Table) 04/09/25 Range/Units 06:44 WBC 14.22 H (4.50-10.00) 10*3/uL RBC 3.68 L (4.10-5.20) 10*6/uL Hgb 9.6 L D (12.0-15.0) g/dL Hct 29.6 L (37.2-46.3) % MCH 26.1 L (27.0-32.0) pg Immature Gran # 0.09 H (0.00-0.04) 10*3/uL Neutrophils # 10.89 H (1.80-7.70) 10*3/uL Monocytes # 1.40 H (0.20-1.00) 10*3/uL Eosinophils # 0.03 L (0.04-0.35) 10*3/uL Assessment and Plan (1) Term Current Visit: Yes Status: Acute Code(s): Z34.90 - ENCNTR FOR SUPRVSN OF NORMAL , UNSP, UNSP TRIMESTER SNOMED Code(s): 62759891 (2) Varices of umbilical cord Current Visit: Yes Status: Acute Code(s): WRX4423 - SNOMED Code(s): 664298053 (3) Arrest of dilation, delivered, current hospitalization Current Visit: Yes Status: Acute Code(s): O62.1 - SECONDARY UTERINE INERTIA SNOMED Code(s): 61879878 (4) Arrest of descent, delivered, current hospitalization Current Visit: Yes Status: Acute Code(s): O62.1 - SECONDARY UTERINE INERTIA SNOMED Code(s): 36782045 (5) malpresentation Current Visit: Yes Status: Acute Code(s): O32.9XX0 - MATERNAL CARE FOR MALPRESENTATION OF FETUS, UNSP, UNSP SNOMED Code(s): 88877098 (6) S/P section Current Visit: Yes Status: Acute Code(s): Z98.891 - HISTORY OF UTERINE SCAR FROM PREVIOUS SURGERY SNOMED Code(s): 408789101 Plan: Patient is doing well postoperatively, awaiting spontaneous void. Plan to continue routine postoperative care
[2025-04-09] MEDS: HYDROmorphone 1 MG/ML 1 ML SYRINGE IVP PRN (13:51)
[2025-04-09 14:34] LABS: Basophils # (A) 0.04 10*3/uL (0.00-0.10); Basophils % (A) 0.3 %; Eosinophils # (A) 0.04 10*3/uL (0.04-0.35); Eosinophils % (A) 0.3 %; HCT 30.1 % (37.2-46.3); HGB 9.8 g/dL (12.0-15.0); Lymphocytes # (A) 1.83 10*3/uL (0.90-5.00); Lymphocytes % (A) 12.2 %; MCH 26.5 pg (27.0-32.0); MCHC 32.6 g/dL (32.0-37.0); MCV 81.4 fL (80.0-97.0); Mean Platelet Volume 10.4 fL (9.5-12.2); Monocytes # (A) 1.38 10*3/uL (0.20-1.00); Monocytes % (A) 9.2 %; Neutrophils # (A) 11.66 10*3/uL (1.80-7.70); Neutrophils % (A) 77.5 %; Platelet Count 212 10*3/uL (140-440); RDW 14.7 % (11.5-14.5); WBC 15.03 10*3/uL (4.50-10.00)
[2025-04-10] MEDS: PRENATAL VIT-IRON-FOLIC ACID 1 EACH TABLET PO SCH (01:25)
--- NOTE | 2025-04-10 08:22 | P.PNOBGPC ---
Subjective - Subjective Principal diagnosis: New, primary Interval history: Patient is doing well this morning. She is ambulating and voiding without difficulty. Still struggling somewhat with pain control. She is breast-feeding without difficulty. Lochia is noted to be moderate. Patient reports: Reports appetite normal, Reports voiding normally, Reports pain well controlled, Reports ambulating normally : doing well, nursing well Objective - Vital Signs Latest vital signs: Vital Signs Temp Pulse Resp BP Pulse Ox 04/10/25 00:00 98.4 F 108 H 18 112/64 04/09/25 16:00 97.7 F 85 16 111/71 97 Intake and Output 04/09/25 04/10/25 04/10/25 22:59 06:59 14:59 Other: # Voids 1 1 - Exam Extremities: Present: normal, edema Abdomen: Present: normal appearance, soft Incision: Present: normal, dry, intact Uterus: Present: normal, firm - Labs Labs: Abnormal Lab Results - Last 24 Hours (Table) 04/09/25 Range/Units 14:08 WBC 15.03 H (4.50-10.00) 10*3/uL RBC 3.70 L (4.10-5.20) 10*6/uL Hgb 9.8 L (12.0-15.0) g/dL Hct 30.1 L (37.2-46.3) % MCH 26.5 L (27.0-32.0) pg Immature Gran # 0.08 H (0.00-0.04) 10*3/uL Neutrophils # 11.66 H (1.80-7.70) 10*3/uL Monocytes # 1.38 H (0.20-1.00) 10*3/uL Assessment and Plan (1) Term Current Visit: Yes Status: Acute Code(s): Z34.90 - ENCNTR FOR SUPRVSN OF NORMAL , UNSP, UNSP TRIMESTER SNOMED Code(s): 72091759 (2) Varices of umbilical cord Current Visit: Yes Status: Acute Code(s): KRA2484 - SNOMED Code(s): 585847824 (3) Arrest of dilation, delivered, current hospitalization Current Visit: Yes Status: Acute Code(s): O62.1 - SECONDARY UTERINE INERTIA SNOMED Code(s): 80532152 (4) Arrest of descent, delivered, current hospitalization Current Visit: Yes Status: Acute Code(s): O62.1 - SECONDARY UTERINE INERTIA SNOMED Code(s): 54910432 (5) malpresentation Current Visit: Yes Status: Acute Code(s): O32.9XX0 - MATERNAL CARE FOR MALPRESENTATION OF FETUS, UNSP, UNSP SNOMED Code(s): 82973283 (6) S/P section Current Visit: Yes Status: Acute Code(s): Z98.891 - HISTORY OF UTERINE SCAR FROM PREVIOUS SURGERY SNOMED Code(s): 901863909 Plan: Doing well postoperatively, plan to continue routine postoperative care, anticipate discharge home tomorrow
[2025-04-11 08:14] VITALS: BP 110/79; PULSE 92; RESP 16; TEMP 97.9
--- NOTE | 2025-04-11 09:37 | P.DS ---
Providers Date of admission: 04/07/25 15:59 Expected date of discharge: 04/11/25 Attending physician: Niki Pichardo Primary care physician: Stated None - Discharge Diagnosis(es) (1) Term Current Visit: Yes Status: Acute (2) Varices of umbilical cord Current Visit: Yes Status: Acute (3) Arrest of dilation, delivered, current hospitalization Current Visit: Yes Status: Acute (4) Arrest of descent, delivered, current hospitalization Current Visit: Yes Status: Acute (5) malpresentation Current Visit: Yes Status: Acute (6) S/P section Current Visit: Yes Status: Acute Hospital Course: This is a 24-year-old 1 now para 1-0-0-1 that presented to labor and delivery at 38-5/7 weeks for induction of labor secondary to umbilical cord varix. Patient had been dealing with severe anxiety since diagnosis was revealed a few weeks ago. Patient had significant concerns about demise. Patient was noting decreased movement. Patient in addition had an ultrasound revealing suspected LGA. Given patient's mental health and umbilical cord varix patient was admitted for medical induction of labor. Patient was admitted and Cervidil was placed, patient did become uncomfortable through the night receiving Nubain. In the morning Pitocin augmentation of labor was begun and amniotomy was performed. Layer and clear fluid was obtained. Patient made slow progress through the day but did receive an epidural for analgesia. Patient arrested in labor and after many hours patient was counseled on lack of progress lack of descent and possibility for primary . Patient and did discuss and multiple questions were answered. Together we made a decision to proceed with primary low-transverse section. Patient was taken back to the operating room where primary section was performed without difficulty. Patient delivered a viable male infant at 1940 on 04/08, viable male weight of 8 pounds 15 ounces. Infant was noted to be in the left occiput transverse presentation bruising was noted on the forehead consistent with male presentation. For full details on the surgery please see the dictated operative cord. Patient's postoperative course was complicated by poor pain control. On this postoperative day #3 patient states she is feeling well. She is taking Oxy along with ibuprofen and Tylenol for pain control. She is requesting prescription for home use. Her lochia is noted to be minimal to moderate. She is ambulating and voiding without difficulty. She is tolerating a regular diet without nausea or vomiting. She states she is feeling well and would like discharge home. Patient Condition at Discharge: Good Plan - Discharge Summary New Discharge Prescriptions: No Action Vit No.179/Iron/Folic [ Tablet] 1 tab PO DAILY Discharge Medication List Vit No.179/Iron/Folic [ Tablet] 1 tab PO DAILY 04/07/25 [History] Follow up Appointment(s)/Referral(s): Niki Pichardo DO [Doctor of Osteopathic Medicine] - 05/20/25 1:00 pm Patient Instructions/Handouts: (DC), (GEN) Activity/Diet/Wound Care/Special Instructions: Lokl-llp-tkhdefp ibuprofen 600 mg or 3 tablets every 6 hours as needed for pain. Routine postoperative check in 2 weeks. Patient is counseled on bowel health, senna S as needed for constipation symptoms Should she have any concerns prior to this postoperative ointment she is urged to call the office and be seen prior. Discharge Disposition: HOME SELF-CARE
--- NOTE | 2025-04-16 08:28 | CDI ---
Documentation Clarification Form Date: 04/16/25 From: Damaris Ramirez Admit Date: 04/07/2025 03:59:00 PM Patient Name: Cydney Perdue Visit Number: [id number] Discharge Date: 04/11/2025 12:30:00 PM ATTENTION: The Clinical Documentation Specialists (CDI) and [facility] Coding Staff appreciate your assistance in clarifying documentation. Please respond to the clarification below the line at the bottom and electronically sign. The CDI & [facility] Coding staff will review the response and follow-up if needed. Please note: Queries are made part of the Legal Health Record. If you have any questions, please contact the author of this message via ITS. Doctor/Provider: Niki Pichardo Your patient has documentation of HCT dropped from 11.7 to 9.6 and HGB dropped from 36.4 to 29.6.. Based on this information and the findings below, is there an additional diagnosis that is clinically appropriate for this patient? Patient history/risk factors: NA Clinical Indicators: HCT: 04/07-11.7, 04/09-9.6/9.8 H/24-36.4, 04/09-29.6/30.1 CS with estimated blood loss of 1052 ml Treatment: IV fluids Is there an additional diagnosis that is clinically appropriate for this patient? [ X ] Acute blood loss anemia [ ] No additional diagnosis/Not clinically significant [ ] Unable to determine [ ] Other, please specify MTDD
== END 2025-04-11 12:30 | disposition home or self-care (01) | DRG 787 ==
LOC: 4FBP 15:59
PROVIDERS: ADMIT Obstetrics & Gynecology Obstetrics; ATTEND Obstetrics & Gynecology Obstetrics
PROC: 10907ZC Drainage of Amniotic Fluid, Therapeutic from Products of Conception, Via Natural or Artificial Opening (ICD-10-PCS; 2025-04-07)
PROC: 3E033VJ Introduction of Other Hormone into Peripheral Vein, Percutaneous Approach (ICD-10-PCS; 2025-04-07)
PROC: 3E0P7VZ Introduction of Hormone into Female Reproductive, Via Natural or Artificial Opening (ICD-10-PCS; 2025-04-07)
PROC: 10D00Z1 Extraction of Products of Conception, Low, Open Approach (ICD-10-PCS; principal; 2025-04-08 06:15)
DX: O69.89X0 Labor and delivery complicated by other cord complications, not applicable or unspecified (principal); D62 Acute posthemorrhagic anemia; O36.8130 Decreased fetal movements, third trimester, not applicable or unspecified; O62.0 Primary inadequate contractions; O62.1 Secondary uterine inertia; O99.344 Other mental disorders complicating childbirth; Z37.0 Single live birth; F41.9 Anxiety disorder, unspecified; Z3A.38 38 weeks gestation of pregnancy; Z83.3 Family history of diabetes mellitus
CPT/HCPCS: 85025; 85461; 86850; 86900; 86901